=== PATIENT | male | born 1970 | race Caucasian/White ===

== ENCOUNTER 2019-03-02 08:17 | Day surgery (SDC) | payer OTHER ==
[2019-03-01 12:14] VITALS: BMI 35.9
[2019-03-02 09:17] LABS: #Basophils 0.1 thou/uL (0.0-0.2); #Eosinphils 0.1 thou/uL (0.0-0.7); #Lymphocytes 1.8 thou/uL (1.20-3.40); #Monocytes 0.5 thou/uL (0.11-0.59); %Basophils 0.9 % (0.0-1.0); %Monocytes 7.6 % (0.0-10.0); %Neutrophils 61.5 % (42.0-75.0); Hemoglobin 15.8 g/dL (14.0-18.0); Mean Corpuscular HGB CONC 33.8 g/dL (32.0-36.0); Mean Corpuscular Hemoglobin 32.9 pg (27.0-31.0); Mean Corpuscular Volume 97.1 fL (78.0-98.0); Mean Platelet Volume 6.8 fL (7.4-10.4); Platelet Count 230 thou/uL (130-400); RBC Distribution Width 11.8 % (11.5-14.5); White Blood Cell (WBC) Count 6.4 thou/uL (4.8-10.8)
[2019-03-02 09:26] LABS: INR-International Normal Ratio 1.8; PTT 38.2 SEC (22.9-36.1); Prothrombin Time 20.6 SEC (12.0-14.7)
[2019-03-02 09:38] LABS: Anion Gap 16 mmol/L (10-20); BUN (Urea Nitrogen) 19 mg/dL (8.9-20.6); Calc. Creatinine Clearance 192 mL/min (70-130); Calcium 10.1 mg/dL (7.8-10.44); Carbon Dioxide 24 mmol/L (22-29); Chloride 104 mmol/L (98-107); Estimated GFR-MDRD Greater than 90; Glucose 164 mg/dL (70-105); Potassium 4.1 mmol/L (3.5-5.1); Sodium 140 mmol/L (136-145)
[2019-03-02] MEDS ORDERED: Iopamidol 370 76% 100 ML VIAL ONE (10:27)
--- NOTE | 2019-03-07 14:44 | EKG ---
Test Reason : PREOP Blood Pressure : / mmHG Vent. Rate : 090 BPM Atrial Rate : 090 BPM P-R Int : 144 ms QRS Dur : 086 ms QT Int : 362 ms P-R-T Axes : 019 048 025 degrees QTc Int : 442 ms Normal sinus rhythm ST elevation, consider early repolarization Borderline ECG Confirmed by BRANDI LÓPEZ ([id number]) on 03/07/2019 2:44:03 PM Referred By: CARINE Confirmed By:BRANDI LÓPEZ
--- NOTE | 2019-03-07 17:03 | CCL ---
DATE OF PROCEDURE: 03/02/19 SURGEON: Cristo Ling M.D. WELDING PROCESS ENGINEER: None. 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 DIAGNOSIS: Pulsatile tinnitus. PROCEDURE: Cerebral angiography. ANESTHESIA: Local. TECHNIQUE: The patient is brought to the angiogram suite and placed on the table in the supine position. Both gr oins were prepped and draped in the usual sterile fashion. A 5 [place] micropuncture set was used to g ain access to the right common femoral artery. Using a Seldinger technique, a 5 [place] sheath was lizet tiffanie. An 5 [place] diagnostic catheter was then placed into the aortic arch over a Bentzen wire. The le ft external carotid artery was selectively catheterized. An AP and lateral angiogram was then perform ed. The catheter was then removed and then placed in the right external carotid artery where an AP an d lateral angiogram was performed. The catheter was then placed within the common carotid artery wher e an AP and lateral angiogram was performed. The catheter was then removed. The sheath was removed an d manual compression was utilized for hemostasis. The procedure came to an end without complication. IMPRESSION: The patient underwent successful angiography. Angiogram is performed from the left external carotid a rtery reveals no evidence for early filling vein or any evidence of dural AV fistula. 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 These arteries continue to be occluded. Furthermore, there is no evid ence for early filling vein or dural AV fistula anywhere else suggestive of dural AV fistula on the r ight side. As such, no additional embolization procedures were performed.
== END 2019-03-02 14:10 | disposition home or self-care (01) ==
LOC: CCL 08:17
PROVIDERS: ATTEND Neurological Surgery
PROC: B31 Imaging, Upper Arteries, Fluoroscopy (ICD-10-PCS; principal; 2019-03-02)
DX: H93.A9 Pulsatile tinnitus, unspecified ear (principal); Z98.890 Other specified postprocedural states; Z79.84 Long term (current) use of oral hypoglycemic drugs; Z79.01 Long term (current) use of anticoagulants; Z79.899 Other long term (current) drug therapy
CPT/HCPCS: 36215; 36216; 36222; 36227; 80048; 85025; 85610; 85730; 93005; 93010; Q9967